=== PATIENT | female | born 1980 | race Two or more races ===

== ENCOUNTER 2019-12-22 08:45 | Day surgery (SDC) | payer OTHER ==
[~2019-12-22 08:45] MED LIST: CIPRO500 MG PO; ULTRACET PO
== END 2019-12-22 17:00 | disposition home or self-care (01) ==
LOC: ADM 08:45 → CIR.AMB 08:45
PROVIDERS: ATTEND Obstetrics & Gynecology
DX: D26.7 Other benign neoplasm of other parts of uterus (principal); Z30.432 Encounter for removal of intrauterine contraceptive device